=== PATIENT | male | born 1940 | race Caucasian/White ===

== ENCOUNTER → 2018-05-13 | Outpatient (CLI) | payer OTHER ==
[~2018-05-13] MED LIST: ALLOPURINOL300 MG PO; BENICAR40 MG PO; CELEBREX200 MG PO; DOXAZOSIN MESYLA2 MG PO; ECOTRIN81 MG; IOPAMIDOL 370 MG/ML 200 ML INFUS..BTL INJ ONE; LIPITOR20 MG PO; SODIUM CHLORIDE 0.9% 100 ML 100 ML ONE; SODIUM CHLORIDE 0.9% 250ML 500 ML ONE
[2018-05-13 13:25] LABS: CREATININE, SERUM 1.68 mg/dL (0.72-1.25)
--- NOTE | 2018-05-13 15:28 | Diagnostic Imaging Report ---
EXAMINATION: CT angiography of the pelvis and lower extremities TECHNIQUE: Spiral CT images of the pelvis and lower extremities were acquired from the iliac crests through the feet after the intravenous administration of 100 cc Isovue-[id number]. Coronal and sagittal reformatted images were obtained. For optimization of anatomic detail volume rendered reconstructions were generated on a stand-alone workstation under the direct supervision of the interpreting physician. Dose reduction technique was employed. COMPARISON: None. CLINICAL HISTORY:Left lower extreme the claudication DISCUSSION: Vasculature: The abdominal aorta is nonaneurysmal inferior to the ELMA origin. There is atherosclerotic plaque with partially visualized mild stenosis of the infrarenal abdominal aorta just below the ELMA origin (series 3 image 1). There is a chronic nonflow limiting dissection beginning just above the aortic bifurcation (series 3 image 6), and extending into the right common iliac artery (series 3 image 10). Iliac inflow: Right: Nonflow limiting dissection as above. The right common and external iliac artery are patent without significant stenosis. The internal iliac artery and proximal visceral branches are patent. Left: The left common and external iliac arteries are patent without significant stenosis. The left internal iliac artery and visceral branches are patent. Femoral-popliteal segments: Right: The right common femoral artery is patent. The femoral bifurcation is patent. The profunda femoris artery and proximal muscular branches are patent. The superficial femoral artery is patent with scattered foci of atherosclerotic plaque, without significant stenosis. The above and below-knee segments of the popliteal artery are patent without significant stenosis. Left: The common femoral artery is patent. The femoral bifurcation is patent. The profunda femoris artery and proximal muscular branches are patent. The superficial femoral artery is patent with scattered foci of calcified and noncalcified atherosclerotic plaque, without significant stenosis. The above-knee popliteal artery is chronically occluded from the level of the abductor hiatus to the level of the intercondylar notch of the femur. The below knee popliteal artery is diffusely diseased but patent. Runoff: Right: The anterior tibial artery is patent proximally though occludes at the level of the mid calf. The tibioperoneal trunk is patent. The peroneal artery is patent to its expected termination at the ankle joint. The posterior tibial artery is patent to its continuation as the lateral plantar artery. Left: The anterior tibial artery is patent and is visualized to its continuation as the dorsalis pedis artery. The tibioperoneal trunk is patent. The peroneal artery is patent to its expected termination above the ankle joint. The posterior tibial artery is patent and is visualized to its continuation as the lateral plantar artery. Nonvascular findings: The urinary bladder is unremarkable. The prostate is enlarged, measuring 6 cm transversely. There are diverticula scattered along the course of the descending and sigmoid colon without wall thickening or inflammation. No pelvic sidewall or lower retroperitoneal lymphadenopathy. No focal soft tissue abnormalities. Degenerative changes of the knees. Multilevel degenerative disc changes of the lower lumbar spine partially visualized. 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 No significant iliac inflow stenosis. No significant right femoral-popliteal stenosis. 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 Two-vessel runoff to the right foot supplied by the peroneal and posterior tibial arteries; three-vessel runoff to the left foot. Conventional runoff anatomy bilaterally. Nonvascular findings include prostatomegaly and large bowel diverticulosis without evidence of diverticulitis. Signed by: Dr. Kevan Mai M.D. on 05/13/2018 3:25 PM
== END ==
LOC: CT 12:44
DX: I70.212 Atherosclerosis of native arteries of extremities with intermittent claudication, left leg (principal)
CPT/HCPCS: 36415; 73706; 82565; 84520; 96360; J7050; Q9967